=== PATIENT | male | born 2000 | race Caucasian/White ===

== ENCOUNTER 2021-11-12 01:31 | Emergency (ER) | payer OTHER ==
[2021-11-12 04:26] LABS: HEMOGLOBIN 16.4 gm/dl (14.0-17.5); RED BLOOD COUNT 5.14 M/UL (4.20-5.50); WHITE BLOOD COUNT 8.2 K/UL (4.5-11.0)
[2021-11-12 04:50] LABS: BUN/CREATININE RATIO 20 (0-10)
== END 2021-11-12 05:36 | disposition home or self-care (01) ==
LOC: ER1 01:31
PROVIDERS: Student in an Organized Health Care Education/Training Program
DX: R07.9 Chest pain, unspecified (principal); Z20.822 Contact with and (suspected) exposure to COVID-19
CPT/HCPCS: 71046; 80053; 82550; 82553; 84484; 85025; 93005; 99285; U0002